=== PATIENT | female | born 1950 | race Caucasian/White ===

== ENCOUNTER → 2016-07-05 17:11 | Outpatient (CLI) | payer MEDICARE, OTHER ==
[2014-10-20 23:36] VITALS: BMI 25.9
[~2016-07-05 17:11] MED LIST: LEVAQUIN500 MG PO; ZESTORETIC 20/21 TAB PO
== END | disposition home or self-care (01) ==
LOC: D.MAMMO 08:15
DX: Z12.31 Encounter for screening mammogram for malignant neoplasm of breast (principal)